=== PATIENT | male | born 1965 | race Caucasian/White ===

== ENCOUNTER 2018-12-23 15:13 | Emergency (ER) | payer OTHER ==
[~2018-12-23] VITALS: Ht 175.3 cm; Wt 138.8 kg
[2018-12-23 15:18] VITALS: Ht 175.3 cm; Wt 138.8 kg
[2018-12-23 16:51] VITALS: BP 123/76
== END 2018-12-23 16:51 | disposition home or self-care (01) ==
LOC: ED 15:13
DX: S89.92XA Unspecified injury of left lower leg, initial encounter (principal); M19.90 Unspecified osteoarthritis, unspecified site; X50.1XXA Overexertion from prolonged static or awkward postures, initial encounter; Y93.89 Activity, other specified; Y92.89 Other specified places as the place of occurrence of the external cause; Y99.8 Other external cause status
CPT/HCPCS: J1885

== ENCOUNTER 2019-02-05 21:24 | Emergency (ER) | payer OTHER ==
[~2019-02-05] VITALS: Ht 175.3 cm; Wt 143.1 kg
[2019-02-05 21:26] VITALS: Ht 175.3 cm; Wt 143.1 kg
[2019-02-06 00:15] VITALS: BP 139/79
== END 2019-02-06 00:15 | disposition home or self-care (01) ==
LOC: ED 21:24
DX: M25.571 Pain in right ankle and joints of right foot (principal)

== ENCOUNTER 2019-02-08 13:13 | Emergency (ER) | payer OTHER ==
[~2019-02-08] VITALS: Ht 175.3 cm; Wt 143.8 kg
[2019-02-08 13:18] VITALS: Ht 175.3 cm; Wt 143.8 kg
[2019-02-08 15:03] VITALS: BP 126/76
== END 2019-02-08 15:03 | disposition home or self-care (01) ==
LOC: ED 13:13
DX: S93.601A Unspecified sprain of right foot, initial encounter (principal); X58.XXXA Exposure to other specified factors, initial encounter; Y93.89 Activity, other specified; Y92.89 Other specified places as the place of occurrence of the external cause; Y99.8 Other external cause status

== ENCOUNTER 2019-10-19 20:47 | Inpatient (IN) | payer OTHER ==
[~2019-10-19] VITALS: Ht 175.3 cm; Wt 134.5 kg
[2019-10-19 20:59] VITALS: Ht 175.3 cm; Wt 134.5 kg
[2019-10-19 21:41] LABS: BASOPHIL % 0.5 % (0-2); PLATELET COUNT 234 x10^3mcL (130-400)
[2019-10-19 21:42] LABS: RED CELL DISTRIBUTION WIDTH 16.3 % (11.5-14.5)
[2019-10-19 21:48] LABS: CALCIUM 8.3 mg/dL (8.5-10.1); CARBON DIOXIDE 30.8 mmol/L (21-32); CHLORIDE SERUM 101 mmol/L (98-107); CREATININE SERUM 0.7 mg/dL (0.7-1.3); GFR1 > 60 mL/min; GLUCOSE SERUM 112 mg/dL (74-106); POTASSIUM SERUM 3.8 mmol/L (3.5-5.1); SODIUM SERUM 138 mmol/L (136-145)
[2019-10-19 22:01] LABS: ALKALINE PHOSPHATASE 91 U/L (46-116); ALT/SGPT 21 U/L (16-63); AST/SGOT 13 U/L (15-37); BILIRUBIN TOTAL 0.3 mg/dL (0.20-1.00); C REACTIVE PROTEIN 2.4 mg/dL (<=0.9); TOTAL PROTEIN, SERUM 6.7 g/dL (6.4-8.2); URIC ACID 3.5 mg/dL (3.5-7.2)
[2019-10-19 22:02] LABS: ALBUMIN 2.9 g/dL (3.4-5.0)
[2019-10-19 22:23] LABS: ERYTHROCYTE SED RATE 43 mm/hr (0-20)
[2019-10-19] MEDS ORDERED: METHADONE HC10 MG/M3 PO (23:30)
[2019-10-19 23:45] LABS: microscopic required? NO
[2019-10-19 23:57] LABS: urine erythrocyte NEGATIVE (NEGATIVE)
[2019-10-20 00:07] LABS: CHOLESTEROL/HDL RATIO 2.1
[2019-10-20 00:16] LABS: AMPHETAMINE QUAL UR NONE DETECTED (See below)
[2019-10-20 05:10] LABS: BASOPHIL % 0.4 % (0-2); PLATELET COUNT 217 x10^3mcL (130-400)
[2019-10-20 05:11] LABS: RED CELL DISTRIBUTION WIDTH 16.7 % (11.5-14.5)
[2019-10-20 05:15] LABS: CALCIUM 8.6 mg/dL (8.5-10.1); CARBON DIOXIDE 32.1 mmol/L (21-32); CHLORIDE SERUM 102 mmol/L (98-107); CREATININE SERUM 0.7 mg/dL (0.7-1.3); GFR1 > 60 mL/min; GLUCOSE SERUM 95 mg/dL (74-106); PHOSPHOROUS 4.2 mg/dL (2.5-4.9); POTASSIUM SERUM 3.5 mmol/L (3.5-5.1); SODIUM SERUM 137 mmol/L (136-145)
[2019-10-20 08:31] VITALS: BP 156/69
[2019-10-20 09:18] VITALS: BP 154/104
[2019-10-20 09:20] VITALS: BP 156/69
[2019-10-20 13:22] VITALS: BP 137/88
[2019-10-20 16:45] VITALS: BP 136/78
[2019-10-20 21:52] VITALS: BP 121/67
[2019-10-21 05:35] VITALS: BP 136/76
[2019-10-21 07:02] LABS: BASOPHIL % 0.4 % (0-2); PLATELET COUNT 228 x10^3mcL (130-400)
[2019-10-21 07:09] LABS: RED CELL DISTRIBUTION WIDTH 16.5 % (11.5-14.5)
[2019-10-21 07:35] LABS: CALCIUM 8.9 mg/dL (8.5-10.1); CHLORIDE SERUM 102 mmol/L (98-107); CREATININE SERUM 0.6 mg/dL (0.7-1.3); GFR1 > 60 mL/min; GLUCOSE SERUM 89 mg/dL (74-106); MAGNESIUM 2.1 mg/dL (1.8-2.4); PHOSPHOROUS 4.3 mg/dL (2.5-4.9); SODIUM SERUM 137 mmol/L (136-145)
[2019-10-21 08:16] VITALS: BP 115/78
[2019-10-21 12:05] VITALS: BP 159/97
[2019-10-21 16:06] VITALS: BP 130/77
[2019-10-21 20:44] VITALS: BP 150/80
[2019-10-22 06:27] VITALS: BP 146/93
[2019-10-22 07:00] LABS: BASOPHIL % 0.4 % (0-2); PLATELET COUNT 224 x10^3mcL (130-400)
[2019-10-22 07:12] LABS: CALCIUM 8.7 mg/dL (8.5-10.1); CARBON DIOXIDE 30.2 mmol/L (21-32); CHLORIDE SERUM 101 mmol/L (98-107); CREATININE SERUM 0.7 mg/dL (0.7-1.3); GFR1 > 60 mL/min; GLUCOSE SERUM 91 mg/dL (74-106); POTASSIUM SERUM 3.7 mmol/L (3.5-5.1); SODIUM SERUM 137 mmol/L (136-145)
[2019-10-22 07:13] LABS: RED CELL DISTRIBUTION WIDTH 16.2 % (11.5-14.5)
[2019-10-22] MEDS ORDERED: AUGMENTIN1 TA1 PO (08:13)
[2019-10-22 08:36] VITALS: BP 146/80
[2019-10-22 08:39] VITALS: BP 146/80
== END 2019-10-22 09:05 | disposition home or self-care (01) | DRG 383 ==
LOC: ED 20:47 → MU 22:56
PROVIDERS: Emergency Medicine; Student in an Organized Health Care Education/Training Program; ADMIT Internal Medicine; ATTEND Internal Medicine
DX: L03.116 Cellulitis of left lower limb (principal); E44.0 Moderate protein-calorie malnutrition; Z68.41 Body mass index [BMI] 40.0-44.9, adult; Z59.0 Homelessness; L03.115 Cellulitis of right lower limb; E66.9 Obesity, unspecified; Z71.3 Dietary counseling and surveillance; D64.9 Anemia, unspecified
CPT/HCPCS: 83880; G0378; J0696; J1940; J3370; J7040; J7060; Q0092